=== PATIENT | female | born 1990 | race Caucasian/White ===

== ENCOUNTER 2021-01-21 14:38 | Outpatient (REF) | payer OTHER, SELFPAY | END 2021-01-21 14:39 | disposition home or self-care (01) | LOC: HO.LAB 14:38 | PROVIDERS: Visit Provider Internal Medicine | DX: Z20.822 Contact with and (suspected) exposure to COVID-19 (principal) | CPT/HCPCS: C9803; U0003; U0005 ==

== ENCOUNTER 2021-03-23 15:25 | Outpatient (REF) | payer OTHER, SELFPAY ==
[2021-03-23 15:56] LABS: COVID-19 Test Negative (Negative)
== END 2021-03-23 15:26 | disposition home or self-care (01) ==
LOC: HO.LAB 15:25
PROVIDERS: Visit Provider Internal Medicine
DX: Z20.822 Contact with and (suspected) exposure to COVID-19 (principal)
CPT/HCPCS: 36415; 87635; C9803

== ENCOUNTER 2021-07-22 13:06 | Outpatient (REF) | payer OTHER, MEDICAID, SELFPAY ==
[2021-07-22 15:06] LABS: D Dimer High Sensitivity < 150 NG/ML
[2021-07-22 15:21] LABS: Anion Gap 10 (12-20); Blood Urea Nitrogen 4 mg/dL (9-16); Calcium 9.4 mg/dL (8.4-10.2); Carbon Dioxide 24 mmol/L (22-29); Chloride 108 mmol/L (96-108); Estimated Glomerular Filt Rate > 60; Glucose Random 81 mg/dL (60-115); Potassium 4.1 mmol/L (3.3-5.1); Sodium 138 mmol/L (135-145)
[2021-07-23 21:02] LABS: EBV-VCA IgM Ab <36.00 U/mL
== END 2021-07-22 13:07 | disposition home or self-care (01) ==
LOC: HO.LAB 13:06
PROVIDERS: PCP Emergency Medicine; Visit Provider Emergency Medicine
DX: R39.9 Unspecified symptoms and signs involving the genitourinary system (principal)
CPT/HCPCS: 36415; 80048; 85379; 86664; 86665

== ENCOUNTER 2021-11-15 13:45 | Outpatient (REF) | payer OTHER, MEDICAID, SELFPAY ==
--- NOTE | ~2021-11-15 | MM_ITS ---
EXAMINATION: MM DIAGNOSTIC DIGITAL BREAST TOMOSYNTHESIS, BILATERAL US DIAGNOSTIC ULTRASOUND BREAST, RIGHT CLINICAL INFORMATION: 31-year-old with pain and fullness upper outer right breast for approximately one month, currently decreased. No prior imaging. The lifetime risk of breast cancer based on the Tyrer-Cuzick Model is 14%. COMPARISON: None (current study represents initial baseline exam). TECHNIQUE: Digital breast tomosynthesis is performed in both the craniocaudal and mediolateral oblique views along with computer-aided detection (CAD). Synthesized 2D images are generated from the tomosynthesis. Ultrasound right breast is targeted to the area of clinical concern upper outer quadrant. Patient is imaged both supine and upright. Grayscale imaging and color Doppler are performed without and with harmonics. Patient is able to point to the area of concern at time of imaging. FINDINGS: There are scattered areas of fibroglandular density (ACR BI-RADS breast composition Category b). Breast tissue composition borders on heterogeneously dense. There is no significant mass or architectural abnormality or abnormal calcifications. The axilla are unremarkable. The skin contours are smooth. There are bilateral nipple piercings as well as piercings near the inframammary folds. No skin thickening. No coarsening of the Elvis's ligaments. Ultrasound right breast demonstrates no cystic or solid mass. No focal architectural abnormality or duct ectasia. No skin thickening or edema tracking in soft tissue planes. Results are discussed with the patient at time of visit. There is no mammographic or ultrasound correlate for patient's palpable concern and mastodynia. MM/MM tomosynthesis diagnostic BI IMPRESSION: -No mammographic evidence of malignancy or inflammatory changes. -Normal ultrasound right breast. ASSESSMENT: BI-RADS 1: Negative RECOMMENDATION: 1. Patient should be managed based on the clinical impression. If clinically indicated, further evaluation may be considered with surgical consult. Decision to proceed with biopsy should be based on clinical grounds and degree of clinical concern. 2. Otherwise, routine annual screening mammography, beginning age 40, or earlier as clinical risk factors warrant. This patient's information was entered into a reminder system with a target due date for their next mammogram.
== END 2021-11-15 13:46 | disposition home or self-care (01) ==
LOC: HO.MAMMO 13:45
PROVIDERS: PCP Nurse Practitioner; Visit Provider Nurse Practitioner
DX: N63.11 Unspecified lump in the right breast, upper outer quadrant (principal)
CPT/HCPCS: 76642; 77062; 77066

== ENCOUNTER 2023-01-17 15:22 | Outpatient (REF) | payer OTHER, SELFPAY ==
--- NOTE | ~2023-01-17 | US_ITS ---
EXAMINATION: US PELVIS CLINICAL INFORMATION: Pelvic pain. COMPARISON: CT abdomen/pelvis 12/23/2016. TECHNIQUE: Ultrasound of the pelvis is performed using both transabdominal and transvaginal transducers along with Doppler. Transvaginal imaging is performed due to inadequate visualization transabdominally. FINDINGS: Uterus: The uterus is anteverted and measures 9.1 x 4.4 x 5.6 cm. The double wall endometrial thickness is 12 mm. The uterus is smooth in contour and has normal myometrial echogenicity. No visible fibroid. Nabothian cysts are present in the cervix. Adnexa: Both ovaries are visualized. There is normal color flow to the adnexa. There is no ovarian torsion. There is a small amount of free pelvic fluid. Right ovary measures 2.4 x 1.2 x 2.4 cm for a volume of 3.9 mL. Left ovary measures 4.7 x 2.7 x 3.4 cm for a volume of 23 mL which includes a 2.8 x 1.9 x 2.2 cm benign slightly complex ovarian cyst. US/US pelvic and transvaginal IMPRESSION: Negative exam aside from the presence of a benign-appearing left ovarian cyst with a small amount of free pelvic fluid.
== END 2023-01-17 15:23 | disposition home or self-care (01) ==
LOC: HO.US 15:22
PROVIDERS: PCP Family Medicine; Visit Provider Family Medicine
DX: R10.2 Pelvic and perineal pain (principal)
CPT/HCPCS: 76830; 76856

== ENCOUNTER 2023-04-26 18:15 | Outpatient (REF) | payer OTHER, SELFPAY ==
[2023-04-27 02:42] LABS: CT PCR NOT DETECTED (Not Detect.); NG PCR NOT DETECTED (Not Detect.)
[2023-04-27 13:49] LABS: BV Int Neg Control Negative (Negative); BV Int Pos Control Positive (Positive)
== END 2023-04-26 18:16 | disposition home or self-care (01) ==
LOC: HO.HHCLNP 18:15
PROVIDERS: Visit Provider Student in an Organized Health Care Education/Training Program
DX: N76.0 Acute vaginitis (principal)
CPT/HCPCS: 0353U; 87480; 87510; 87660

== ENCOUNTER 2023-05-12 11:31 | Outpatient (REF) | payer OTHER, SELFPAY | END 2023-05-12 11:32 | disposition home or self-care (01) | LOC: HO.XRAY 11:31 | PROVIDERS: PCP Family Medicine; Visit Provider Student in an Organized Health Care Education/Training Program | DX: Z13.89 Encounter for screening for other disorder (principal) ==

== ENCOUNTER 2023-08-17 17:17 | Outpatient (REF) | payer OTHER, SELFPAY | END 2023-08-17 17:18 | disposition home or self-care (01) | LOC: HO.HHCLNP 17:17 | PROVIDERS: Visit Provider Nurse Practitioner Family | DX: R05.9 Cough, unspecified (principal) | CPT/HCPCS: 87086; 87088; 87186 ==

== ENCOUNTER 2024-04-24 18:18 | Outpatient (REF) | payer OTHER, SELFPAY ==
[2024-04-25 03:50] LABS: CT PCR NOT DETECTED (Not Detect.); NG PCR NOT DETECTED (Not Detect.)
[2024-04-25 11:34] LABS: Bacterial Vaginosis PCR POSITIVE (Negative); Candida Group PCR NOT DETECTED (Not Detect); Candida glab krusei PCR NOT DETECTED (Not Detect); Trichomonas vaginalis PCR NOT DETECTED (Not Detect)
== END 2024-04-24 18:19 | disposition home or self-care (01) ==
LOC: HO.LNP 18:18
PROVIDERS: Visit Provider Emergency Medicine
DX: R39.9 Unspecified symptoms and signs involving the genitourinary system (principal)
CPT/HCPCS: 0352U; 87086; 87491; 87591

== ENCOUNTER 2024-04-25 13:34 | Outpatient (REF) | payer OTHER, SELFPAY ==
--- NOTE | ~2024-04-25 | XR_ITS ---
EXAMINATION: XR CHEST CLINICAL INFORMATION: 4-5 day h/o right anterior chest pain after hearing a pop . Patient has permanent piercings in the chest. COMPARISON: None available TECHNIQUE: 2 views, 3 images of the chest were obtained. FINDINGS: The lungs are well expanded. There is no focal consolidation, edema, or effusion. No pneumothorax. The cardiomediastinal silhouette is within normal limits. No acute osseous abnormality. Bilateral nipple piercings and left chest wall piercing. XR/XR chest 2V IMPRESSION: Clear lungs. No acute osseous abnormality. Electronically signed by: Keith Castillo MD 06/19/2024 08:14 AM [facility]
== END 2024-04-25 13:35 | disposition home or self-care (01) ==
LOC: HO.XRAY 13:34
PROVIDERS: PCP Family Medicine; Visit Provider Emergency Medicine
DX: R07.9 Chest pain, unspecified (principal)
CPT/HCPCS: 71046

== ENCOUNTER 2025-01-02 17:37 | Outpatient (REF) | payer SELFPAY ==
--- OUTSIDE RECORDS SUMMARY | 2025-01-02 19:57 | XMS_ITS | Encounter Summary ---
Author Organization [employer] Address [address] [facility] [address] 7[address] [place] [address] Care Team Providers Care Healthcare Business Analyst Name Role Phone Kailyn Gill MD Primary Care Provider [phone] Encounter Details Date Type Department Care Team ([facility] st Contact Info) Description 05/03/2023 Orders Only [facility] MED & PEDS [address] [place], [place] [phone] Rhiannon Hinson MD [address] [place] [address] Social History Tobacco Use Types Packs/Day Years Used Date Smoking Tobacco: Never Passive Smoke Exposure: Never Smokeless Tobacco: Never Depression Answer Date Recorded Patient Health Questionnaire-9 Score 8 07/18/2022 Housing Stability Answer Date Recorded What is your housing situation today? I do not have housing (Staying with others, in a hotel, in a fci, living outside on the street, on a beach, in a car, or in a park 04/16/[address] you li ve. Do you have problems with any of the following? None of the above 04/16/2023 Food Insecurity Answer Date Recorded Within the past 12 months, y ou worried that your food would run out before you got money to buy more: Sometimes True 2022 Within the past 12 months,th e food you bought just didn't last and you didn't have enough money to get more: Sometimes True 04/26/2023 Transportation Answer Date Recorded In the past 12 months, has l ack of transportation kept you from medical appts, meetings, work or from getting things needed for daily living? No 04/26/2023 Utilities Answer Date Recorded In the past 12 months, has t he electric, gas, oil or water company threatened to shut off services in your home? No 04/26/2023 Depression Answer Date Recorded Patient Health Questionnaire-2 Score 4 07/18/2022 Comments Unknown Sex and Gender Information Value Date Recorded Sex Assigned at Female 05/09/2022 10:18 AM EDT Legal Sex Female 10:18 AM EDT Gender Identity Female 05/09/2022 10:18 AM EDT Sexual Orientation Straight 05/09/2022 10 :18 AM EDT documented as of this encounter Plan of Treatment Not on file documented as of this encounter Visit Diagnoses Not on filedocumented in this encounter Additional Health Concerns Assessment Noted Time PHQ-9 Depression Total Score: 8 07/18/19 23 2:26 PM EST documented as of this encounter Care Teams Healthcare Business Analyst Relationship Specialty Start Date End Date Kailyn Gill MD [address] [place] [phone] PCP - General Family Medicine 03/03/22 documented as of this encounter
[2025-01-02 20:26] LABS: Bacterial Vaginosis PCR POSITIVE (Negative); Candida Group PCR NOT DETECTED (Not Detect); Candida glab krusei PCR NOT DETECTED (Not Detect); Trichomonas vaginalis PCR NOT DETECTED (Not Detect)
[2025-01-02 21:00] LABS: CT PCR NOT DETECTED (Not Detect.); NG PCR NOT DETECTED (Not Detect.)
== END 2025-01-02 17:38 | disposition home or self-care (01) ==
LOC: HO.HHCLNP 17:37
PROVIDERS: Visit Provider Nurse Practitioner Family
DX: R39.9 Unspecified symptoms and signs involving the genitourinary system (principal)
CPT/HCPCS: 81515; 87491; 87591

== ENCOUNTER → 2025-06-19 13:21 | Outpatient (REF) | payer OTHER, SELFPAY ==
--- OUTSIDE RECORDS SUMMARY | 2025-06-19 20:32 | XMS_ITS | Encounter Summary ---
Author Organization [employer] Address [address] [facility] [address] [place] [address] Care Team Providers Care Dehydrogenation Supervisor Name Role Phone Kailyn Gill MD Primary Care Provider [phone] Encounter Details Date Type Department Care Team ([facility] st Contact Info) Description 05/03/2023 Orders Only [facility] MED & PEDS [address] [place], [place] [phone] Rhiannon Hinson MD [address] [place] [address] Social History Tobacco Use Types Packs/Day Years Used Date Smoking Tobacco: Never Passive Smoke Exposure: Never Smokeless Tobacco: Never Depression Answer Date Recorded Patient Health Questionnaire-9 Score 8 07/18/2022 Housing Stability Answer Date Recorded What is your housing situation today? I do not have housing (Staying with others, in a hotel, in a usp, living outside on the street, on a [...] as of this encounter Plan of Treatment Upcoming Encounters Date Type Department Care Team (Late st Contact Info) Description 07/02/2025 9:30 AM EST Office Visit [facility] [address] [place] [phone] Kailyn Gill MD [address] [place] [address] documented as of this encounter Visit Diagnoses Not on filedocumented in this encounter Additional Health Concerns Assessment Noted Time PHQ-9 Depression Total Score: 8 07/18/19 23 2:26 PM EST documented as of this encounter Care Teams Dehydrogenation Supervisor Relationship Specialty Start Date End Date Kailyn Gill MD [address] [place] [address] PCP - General Family Medicine 03/03/22 documented as of this encounter
--- OUTSIDE RECORDS SUMMARY | 2025-06-19 20:32 | XMS_ITS | Encounter Summary ---
Author Organization [employer] Address [address] [facility] 7t [place] [address] Care Team Providers Care Assistant Pressman Name Role Phone Kailyn Gill MD Primary Care Provider Encounter Details Date Type Department Care Team ([facility] st Contact Info) Description 09/05/2023 Orders Only [facility] [address] [place], [place] [phone] Kailyn Gill MD [address] [place], [place] [phone] Anxiety Social History Tobacco Use Types Packs/Day Years Used Date Smoking Tobacco: Never Passive Smoke Exposure: Never Smokeless Tobacco: Never Depression Answer Date Recorded Patient Health Questionnaire-9 Score 8 07/18/2022 Housing Stability Answer Date Recorded What is your housing situation today? I do not have housing (Staying with others, in a hotel, in a group home, living outside on the street, on a [...] Description 07/02/2025 9:30 AM EST Office Visit [facility] [address] [place] [phone] Kailyn Gill MD [address] [place] [phone] documented as of this encounter Visit Diagnoses Diagnosis Anxiety Anxiety state, unspecified documented in this encounter Additional Health Concerns Assessment Noted Time PHQ-9 Depression Total Score: 8 07/18/19 23 2:26 PM EST documented as of this encounter Care Teams Assistant Pressman Relationship Specialty Start Date End Date Kailyn Gill MD [address] [place] [phone] PCP - General Family Medicine 03/03/22 documented as of this encounter
--- OUTSIDE RECORDS SUMMARY | 2025-06-19 20:32 | XMS_ITS | Encounter Summary ---
Author Organization [employer] Address [address] [facility] 7t [place] [address] Care Team Providers Care Field Inspector Name Role Phone Kailyn Gill MD Primary Care Provider [phone] Encounter Details Date Type Department Care Team ([facility] st Contact Info) Description 01/03/2025 Orders Only [facility] [address] [place], [place] [phone] Briana Main NP [address] [place], [place] [phone] Social History Tobacco Use Types Packs/Day Years Used Date Smoking Tobacco: Never Passive Smoke Exposure: Never Smokeless Tobacco: Never Depression Answer Date Recorded Patient Health Questionnaire-9 Score 4 05/16/2024 Patient Health Questionnaire-9 Score 4 05/16/2024 Last PHQ-9: Questionnaire Data Not on file 1 07/16/2023 Housing Stability Answer Date Recorded What is your housing situation today? I do not have housing (Staying with others, in a hotel, in a longterm, living outside on the street, on a [...] Answer Date Recorded Patient Health Questionnaire-2 Score 1 05/16/2024 Comments Unknown Sex and Gender Information Value [...] Description 07/02/2025 9:30 AM EST Office Visit [facility] [address] [place] [address] Kailyn Gill MD [address] [place] [phone] documented as of this encounter Visit Diagnoses Not on filedocumented in this encounter Additional Health Concerns Assessment Noted Time PHQ-9 Depression Total Score: 4 05/16/20 24 11:45 AM EST documented as of this encounter Care Teams Field Inspector Relationship Specialty Start Date End Date Kailyn Gill MD [address] [place] [phone] PCP - General Family Medicine 03/03/22 documented as of this encounter
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
--- OUTSIDE RECORDS SUMMARY | 2025-06-19 20:33 | XMS_ITS | Encounter Summary ---
Author Organization [employer] Address [address] [facility] 7t [place] [address] Care Team Providers Care Processor Grain Name Role Phone Kailyn Gill MD Primary Care Provider [phone] Encounter Details Date Type Department Care Team ([facility] st Contact Info) Description 01/03/2025 Orders Only [facility]INE [address] [place], [place] [phone] Kenyatta Colón MD [address] [place] [address] Social History Tobacco Use Types Packs/Day Years [...] with others, in a hotel, in a mcfp, living outside on the street, on a [...] Description 07/02/2025 9:30 AM EST Office Visit [facility] [address] [place] [phone] Kailyn Gill MD [address] [place] [phone] documented as of this encounter Visit Diagnoses Not on filedocumented in this encounter Additional Health Concerns Assessment Noted Time PHQ-9 Depression Total Score: 4 05/16/20 24 11:45 AM EST documented as of this encounter Care Teams Processor Grain Relationship Specialty Start Date End Date Kailyn Gill MD [address] [place] [phone] PCP - General Family Medicine 03/03/22 documented as of this encounter
--- OUTSIDE RECORDS SUMMARY | 2025-06-19 20:33 | XMS_ITS | Encounter Summary ---
Author Organization [employer] Address [address] [facility] 7t [place] [address] Care Team Providers Care Welding Machine Operator [employer] Metal [employer] Name Role Phone Kailyn Gill MD Primary Care Provider [phone] Encounter Details Date Type Department Care Team ([facility] st Contact Info) Description 01/03/2025 Orders Only [facility] MED[facility]INE [address] [place], [place] [phone] Briana Main NP 230 [place], [place] [phone] Social History Tobacco Use Types Packs/Day Years [...] with others, in a hotel, in a care home, living outside on the street, on [...] Description 07/02/2025 9:30 AM EST Office Visit [facility] [address] [place] [phone] Kailyn Gill MD [address] [place] [phone] documented as of this encounter Visit Diagnoses Not on filedocumented in this encounter Additional Health Concerns Assessment Noted Time PHQ-9 Depression Total Score: 4 05/16/20 24 11:45 AM EST documented as of this encounter Care Teams Welding Machine Operator [employer] Relationship Specialty Start Date End Date Kailyn Gill MD [address] [place] [phone] PCP - General Family Medicine 03/03/22 documented as of this encounter
--- OUTSIDE RECORDS SUMMARY | 2025-06-19 20:33 | XMS_ITS | Encounter Summary ---
Author Organization [employer] Address [address] [place] [address] 7 [place] [address] Care Team Providers Care Doffer Name Role Phone Kailyn Gill MD Primary Care Provider [phone] Encounter Details Date Type Department Care Team (Late Contact Info) Description 10/07/2022 Orders Only [facility] MEDICINE [address] [place] [address] [phone] Kailyn Gill MD [address] [place] [address] [phone] Social History Tobacco Use Types Packs/Day Years Used Date Smoking Tobacco: Never Passive Smoke Exposure: Never Smokeless Tobacco: Never Depression Answer Date Recorded Patient Health Questionnaire-9 Score 8 07/18/2022 Depression Answer Date Recorded Patient Health Questionnaire-2 Score 4 07/18/2022 Comments Unknown Sex and Gender Information Value Date Recorded Sex Assigned at Female 05/09/2022 10:18 AM EDT Legal Sex Female 10:18 AM EDT Gender Identity Female 05/09/2022 10:18 AM EDT Sexual Orientation Straight 05/09/2022 10 :18 AM EDT COVID-19 Exposure Response Date Recorded In the last 10 days, have yo keshav been in contact with someone who was confirmed or suspected to have Coronavirus/COVID-19? No / Unsure 10/05/2022 2:27 PM EDT documented as of this encounter Plan of Treatment Upcoming Encounters Date Type Department Care Team (Late Contact Info) Description 07/02/2025 9:30 AM EST Office Visit [facility] [address] [place] [address] [phone] Kailyn Gill MD [address] [place], [place] [phone] documented as of this encounter Visit Diagnoses Not on filedocumented in this encounter Additional Health Concerns Assessment Noted Time PHQ-9 Depression Total Score: 8 07/18/19 23 2:26 PM EST documented as of this encounter Care Teams Doffer Relationship Specialty Start Date End Date Kailyn Gill MD [address] [place] [address] PCP - General Family Medicine 03/03/22 documented as of this encounter
--- OUTSIDE RECORDS SUMMARY | 2025-06-19 20:33 | XMS_ITS | Encounter Summary ---
Author Organization [employer] Address [address] [place] [address] 7 [place] [address] Care Team Providers Care Owner Manager Name Role Phone Kailyn Gill MD Primary Care Provider [phone] Encounter Details Date Type Department Care Team (Late Contact Info) Description 12/29/2022 Orders Only [facility] MED[facility]INE [address] [place] [address] [phone] Kailyn Gill MD [address] [place] [address] [phone] Social History Tobacco Use Types Packs/Day Years [...] suspected to have Coronavirus/COVID-19? No / Unsure 12/22/2022 11:03 AM EDT documented as of this encounter Plan of Treatment Upcoming Encounters Date Type Department Care Team (Late Contact Info) Description 07/02/2025 9:30 AM EST Office Visit [facility] [address] [place] [address] [phone] Kailyn Gill MD [address] [place], [place] [phone] documented as of this encounter Visit Diagnoses Not on filedocumented in this encounter Additional Health Concerns Assessment Noted Time PHQ-9 Depression Total Score: 8 07/18/19 23 2:26 PM EST documented as of this encounter Care Teams Owner Manager Relationship Specialty Start Date End Date Kailyn Gill MD [address] [place] [address] PCP - General Family Medicine 03/03/22 documented as of this encounter
--- OUTSIDE RECORDS SUMMARY | 2025-06-19 20:34 | XMS_ITS | Encounter Summary ---
Author Organization [employer] Address [address] [facility] 7t [place] [address] Care Team Providers Care Principal Architectural Firm Name Role Phone Kailyn Gill MD Primary Care Provider [phone] Encounter Details Date Type Department Care Team ([facility] st Contact Info) Description 05/16/2024 Orders Only [facility] MEDICINE 230 [place], [place] [phone] Kailyn Gill MD [address] [place], [place] [phone] Anxiety Social History Tobacco Use Types Packs/Day [...] with others, in a hotel, in a fdc, living outside on the street, on a [...] AM EDT documented as of this encounter Functional Status * Over the past 2 weeks, how often have you been bothered by any of the following problems? Question Answer Date of Assessment Author Patient Health Questionnaire-2 Score 1 05/16/2024 11:45 AM Josué Montes DeO ca LMHC * How difficult have these problems made it for you to do your work, take care of things at home, or get along with other people? Answer Date of Assessment Author Very difficult 05/16/2024 11:45 AM Josué Mao LMHC * Over the last 2 weeks, how often have you been bothered by any of the following problems? Question Answer Date of Assessment Author Feeling nervous, anxious, or on edge 3 05/16/2024 11:44 AM Josué Ryan LMHC Not being able to stop or control worrying 3 05/16/2024 11:44 AM Josué Ryan LMHC Worrying too much about different things 3 05/16/2024 11:44 AM Josué Ryan LMHC Trouble relaxing 3 05/16/2024 11:44 AM Josué Dillon LMHC Being so restless that it is hard to sit still 3 05/16/2024 11:44 AM Josué Ryan LMHC Becoming easily annoyed or irritable 1 05/16/2024 11:44 AM Josué Ryan LMHC Feeling afraid as if something awful might happen 2 05/16/2024 11:44 AM Josué Azul LMHC KAREN-7 Total Score 18 05/16/2024 11:44 AM Josué Dillon LM[facility] * Over the past 2 weeks, how often have you been bothered by any of the following problems? Question Answer Date of Assessment Author Little interest or pleasure in doing things Not at all 05/16/2024 11:45 AM Josué Ryan LMHC Feeling down, depressed, or hopeless Several days 05/16/2024 11:45 AM Josué Ryan LMHC Trouble falling or staying asleep, or sleeping too much Several days 05/16/2024 11:45 AM Josué White LMHC Feeling tired or having little energy Several days 05/16/2024 11:45 AM Josué Ryan LMHC Poor appetite or overeating Not at all 05/16/2024 11 :45 AM Josué Mao LMHC Feeling bad about yourself - or that you are a failure or have let yourself or your family down Not at all 05/16/2024 11:45 AM Josué Ryan LMHC Trouble concentrating on things, such as reading the newspaper or watching television Several days 05/16/2024 11:45 AM Josué Ryan LMHC Moving or speaking so slowly that other people could have noticed? Or the opposite - being so fidgety or restless that you have been moving around a lot more than usual. Not at all 05/16/2024 11:45 AM Josué Ryan LMHC Thoughts that you would be better off or hurting yourself in some way Not at all 05/16/2024 11:45 AM Josué Moreira LMHC Patient Health Questionnaire-9 Score 4 05/16/2024 11:45 AM Josué Montes De Oca LMHC documented as of this encounter Plan of Treatment Upcoming Encounters Date Type Department Care Team ([facility] st Contact Info) Description 07/02/2025 9:30 AM ODESSA Office Visit [facility] MED[facility]INE [address] [place] [address] Kailyn Gill MD [address] [place] [address] documented as of this encounter Visit Diagnoses Diagnosis Anxiety Anxiety state, unspecified documented in this encounter Additional Health Concerns Assessment Noted Time PHQ-9 Depression Total Score: 4 05/16/20 24 11:45 AM EST documented as of this encounter Care Teams Principal Architectural Firm Relationship Specialty Start Date End Date Kailyn Gill MD [address] [place] [phone] PCP - General Family Medicine 03/03/22 documented as of this encounter
== END ==
LOC: HO.CARD 13:21
PROVIDERS: PCP Family Medicine; Visit Provider Nurse Practitioner Primary Care
DX: R00.2 Palpitations (principal)
CPT/HCPCS: 93225

== ENCOUNTER 2025-07-02 15:10 | Outpatient (REF) | payer OTHER, SELFPAY ==
--- OUTSIDE RECORDS SUMMARY | 2025-07-02 09:30 | XMS_ITS | Encounter Summary ---
Author Organization [employer] Address [address] [facility] [address] 7t [place] [address] Care Team Providers Care Healthcare Associate Name Role Phone Kailyn Gill MD Primary Care Provider [phone] Encounter Details Date Type Department Care Team ([facility] st Contact Info) Description 07/02/2025 9:30 AM EST Office Visit [facility] MED[facility]INE 230 [place], [place] [phone] Kailyn Gill MD 230 [place], [place] [phone] Recurrent urinary tract infection (Primary Dx); UTI symptoms Social History Tobacco Use Types Packs/Day Years Used Date Smoking Tobacco: Never Passive Smoke Exposure: Never Smokeless Tobacco: Never Depression Answer Date Recorded Patient Health Questionnaire-9 Score 20 06/11/2025 Patient Health Questionnaire-9 Score 20 06/11/2025 Last PHQ-9: Questionnaire Data Not on file 1 08/12/2024 Housing Stability Answer Date Recorded What is your housing situation today? I am not s ure 07/02/[address] you li ve. Do you have problems with any of the following? Not on file 07/02/2025 Food Insecurity Answer Date Recorded Within the past 12 months, y ou worried that your food would run out before you got money to buy more: Sometimes True 2024 Within the past 12 months,th e food you bought just didn't last and you didn't have enough money to get more: Sometimes True 07/02/2025 Transportation Answer Date Recorded In the past 12 months, has l ack of transportation kept you from medical appts, meetings, work or from getting things needed for daily living? Yes, it has kept me from medical appointments or getting medications. 07/02/2025 Utilities Answer Date Recorded In the past 12 months, has t he electric, gas, oil or water company threatened to shut off services in your home? Yes 07/02/2025 Depression Answer Date Recorded Patient Health Questionnaire-2 Score 5 06/11/2025 Internet Access Answer Date Recorded Internet Access Q1 No 07/02/2025 Internet Access Q2 I cannot afford it 07/02/2025 Comments Unknown Sex and Gender Information Value Date Recorded Sex Assigned at Female 05/09/2022 10:18 AM EDT Legal Sex Female 10:18 AM EDT Gender Identity Female 05/09/2022 10:18 AM EDT Sexual Orientation Straight 05/09/2022 10 :18 AM EDT documented as of this encounter Last Filed Vital Signs Vital Sign Reading Time Taken Comments Blood Pressure 120/80 07/02/2025 10:38 AM EST Pulse 83 07/02/2025 10:38 AM EST Temperature 36 C (96.8 F) 07/02/2025 10:38 AM EST Respiratory Rate 15 07/02/2025 10:38 AM EST Oxygen Saturation 98% 07/02/2025 10:38 AM EST Inhaled Oxygen Concentration - - Weight - - Height 157.5 cm (5' 2 ) 07/02/2025 10:38 AM EST Body Mass Index - - documented in this encounter Functional Status * Over the last 2 weeks, how often have you been bothered by any of the following problems? Question Answer Date of Assessment Author Feeling nervous, anxious, or on edge 3 07/02/2025 11:10 AM Tiago Upton [place] Not being able to stop or control worrying 2 07/02/2025 11:10 AM Tiago Upton [place] Worrying too much about different things 3 07/02/2025 11:10 AM Tiago Upton [place] Trouble relaxing 2 07/02/2025 11:10 AM Cheryl Upton [place] Being so restless that it is hard to sit still 2 07/02/2025 11:10 AM Tiago Upton [place] Becoming easily annoyed or irritable 1 07/02/2025 11:10 AM EST Tiago Jimenes [place] Feeling afraid as if somethi ng awful might happen 2 07/02/2025 11:10 AM EST Tiago Jimenes [place] KAREN-7 Total Score 15 07/02/2025 11:10 AM EST Cheryl Jimenes [place] documented as of this encounter Miscellaneous Notes * Assessment & Plan Note - Kailyn Gill MD - 07/02/2025 5:54 AM ESTAssociated Problem(s): Recurrent urinary tract infection - asymptomatic at this time - postcoital UTI - UTI in Jul 2021 E. Coli resistant to penicillin, beta-lactam, cephalosporin, quinolone, and SMX/TMP, treated with nitrofurantoin - UTI in May 2021 E coli resistant to amp/beta-lactam, cephalosporin, quinolone - UTI in September 2020 E. Coli, treated with nitrofurantoin - consider urology referral or prophylactic antibiotic after sex if increase in frequency documented in this encounter Plan of Treatment Scheduled Orders Name Type Priority Associated Diagnoses Orde r Schedule Culture, Urine, Routine Microbiology Routine Recurrent urinary tract infection UTI symptoms Expected: 07/02/2025 (Approximate), Expires: 07/02/2026 documented as of this encounter Procedures Procedure Name Priority Date/Time Associated Diagnosis Comments POCT URINALYSIS DIPSTICK Routine 07/02/2025 11:18 AM EST UTI symptoms documented in this encounter Results * (ABNORMAL) POCT urinalysis dipstick manually resulted (CPT 65641) (07/02/2025 11:18 AM EST) Color, UA Yellow Clarity, UA Clear Glucose, UA Negative Bilirubin, UA Negative Ketones, UA Negative Spec Grav, UA 1.025 Blood, UA Positive(A) Negative, None Detected Comment:trace pH, UA 6.0 Protein, UA Negative Urobilinogen, UA 0.2 Leukocytes, UA Trace (15) Negative, Rare, Trace, 1+ (17), 2+ (35), 3+ (70), Trace (15) Nitrite, UA Negative Negative, None Detected Appearance, UA clear QC Media Lot # [id number] Lot# Expiration Date ,546,[id number] Urine (Urine, Random) 07/02/2025 11:18 AM EST Kailyn Gill MD POINT OF CARE TEST ENTER/EDIT OR DERABLES Final Result documented in this encounter Visit Diagnoses Diagnosis Recurrent urinary tract infection- Primary Urinary tract infection, site not specified UTI symptoms documented in this encounter Additional Health Concerns Assessment Noted Time PHQ-9 Depression Total Score: 20 025 3:52 PM EST documented as of this encounter Care Teams Healthcare Associate Relationship Specialty Start Date End Date Kailyn Gill MD [address] [place] [phone] PCP - General Family Medicine 03/03/22 documented as of this encounter
--- OUTSIDE RECORDS SUMMARY | 2025-07-02 15:12 | XMS_ITS | Clinical Summary ---
Author Organization [employer] Address [address] [facility] 7t [place] [address] Care Team Providers Care Client Services Account Manager Name Role Phone Ya Gill MD Primary Care Provider [phone] Allergies No known active allergies Medications * This document contains information received from the source organization and may not represent a complete record from that organization. lidocaine-prilo edmund (Emla) 2.5-2.5 % cream Apply topically every 12 (twelve) hours if needed for mild pain. 5 g 3 Active hydrOXYzine HCl (Atarax) 50 MG tabletIndicatio ns:Anxiety Take 1 tablet (50 mg) by mouth if needed at bedtime for anxiety. 90 tablet 1 06/02/2025 5:20 PM EST 5 Active escitalopram (Lexapro) 5 MG tablet Take 1 tablet by mouth once daily. Increase to 2 tablets by mouth once daily after 1 week. 60 tablet 2 5 Active naproxen (Naprosyn) 500 MG tablet Take 1 tablet by mouth with food twice daily as needed for pain / foot swelling 40 tablet 5 Active Active Problems Problem Noted Date Diagnosed Date [...] urinary tract infection 07/23/2021 Assessment & Plan (07/02/2025 5:54 AM EST): - asymptomatic at this time - postcoital [...] if increase in frequency Assessment & Plan (12/22/2022 12:19 PM EDT): [...] Diagnosed Date Resolved Date Dietary counseling 12/22/2022 3 Vaginosis 06/21/2022 07/22/2022 Assessment & Plan (06/21/2022 3:15 PM EST): Symptomatology and exam indicative of this, likely BV Plan: Empiric treatment for BV, lab sent , STI sent F/u if worsening or no improvement Encounters * This document contains information received from the source organization and may not represent a complete record from that organization. Date Type Department Care Team Description 07/02/2025 9:30 AM EST Office Visit [address] [phone] Ya Gill MD Recurrent urinary tract infection (Primary Dx); UTI symptoms 07/02/2025 Patient Outreach [address] [phone] Ya Gill MD Care Coordination ([facility] outreach for [facility] housing search-referral completed ) 07/02/[address] [phone] Ya Gill MD 07/02/2025 Travel 07/01/[address] [address] Ya Gill MD chart prep 06/11/2025 Travel 06/02/2025 3:15 PM EST Office Visit [address] [address] Karol Ryena ANP Anxiety (Primary Dx); Irregular menses; Palpitations 06/02/[address] [address] Ya Gill MD Insurance 06/02/2025 Travel 05/30/[address] [address] Ya Gill MD Nurse Triage from Last [...] EST Height 157.5 cm (5' 2 ) 07/02/2025 10:38 AM EST Body Mass Index 26.52 06/02/2025 3:40 PM EST Plan of Treatment Health Maintenance Due Date Last Done Comments HIV Screening 1991 IPV Vaccines (4 of 4 - 4-dose series) 1995 01/02/1992, 1991, 1991, Additional history exists Family Planning (PISQ) 2006 Hepatitis C Screening 2009 Pap Smear 2012 Cervical Cancer Screening 2021 HPV/Cotest 2021 SDOH Screening 07/18/2023 07/18/2022 COVID-19 Vaccine ( season) 2025 04/15/2021, 11/11/2020 Depression Monitoring 12/10/2025 06/11/2025, 025 Alcohol/Substance Use Screening 07/02/2026 07/02/2025 Disability Screening 07/02/2026 07/02/2025 Tobacco Screening 07/02/2026 07/02/2025 DTaP/Tdap/Td Vaccines (7 - Td or Tdap) 12/04/2031 12/03/2021, 03/03/2006, 04/17/1993, Additional history exists Zoster Vaccines (1 of 2) 2041 RSV Patients and Patients Aged 60 years or older (1 - 1-dose 75+ series) 2066 Meningococcal Vaccine Completed 02/13/2009 HPV Vaccines Completed 03/10/2017, 03/2016, 01/21/2011, Additional history exists Hepatitis B Vaccines [...] on patient's age to complete this topic Procedures Procedure Name Priority Date/Time Associated Diagnosis Comments POCT URINALYSIS DIPSTICK Routine 07/02/2025 11:18 AM EST UTI symptoms from Last 3 Months Results * (ABNORMAL) POCT urinalysis dipstick manually resulted (CPT 82202) (07/02/2025 11:18 AM EST) Color, UA Yellow [...] Media Lot # [id number] Lot# Expiration Date [id number] Urine (Urine, Random) 07/02/2025 11:18 AM EST Ya Gill MD POINT OF CARE TEST ENTER/EDIT OR DERABLES Final Result from Last 3 Months Insurance GENERIC COMMERCIAL * Guarantor: Petra Noel Account Type Relation to Patient Date of Phone Billing Address Personal/Family Self [address] [address] Care Teams Client Services Account Manager Relationship Specialty Start Date End Date Ya Gill MD [address] [place] [phone] PCP - General Family Medicine 03/03/22
--- OUTSIDE RECORDS SUMMARY | 2025-07-02 15:12 | XMS_ITS | Encounter Summary ---
Author Organization [employer] Address [address] [facility] [address] 7t [place] [address] Care Team Providers Care Risk Advisor Name Role Phone Kailyn Gill MD Primary Care Provider [phone] Encounter Details Date Type Department Care Team ([facility] st Contact Info) Description 05/03/2023 Orders Only [facility] PEDS [address] [place], [place] [phone] Rhiannon Hinson MD [address] [place] [address] Social History Tobacco Use Types Packs/Day Years Used Date Smoking Tobacco: Never Passive Smoke Exposure: Never Smokeless Tobacco: Never Depression Answer Date Recorded Patient Health Questionnaire-9 Score 8 07/18/2022 Housing Stability Answer Date Recorded What is your housing situation today? I do not have housing (Staying with others, in a hotel, in a half-way, living outside on the street, on a [...] documented as of this encounter Care Teams Risk Advisor Relationship Specialty Start Date End Date Kailyn iGll MD [address] [place] [phone] PCP - General Family Medicine 03/03/22 documented as of this encounter
--- OUTSIDE RECORDS SUMMARY | 2025-07-02 15:12 | XMS_ITS | Encounter Summary ---
Author Organization [employer] Address [address] [facility] 7t [place] [address] Care Team Providers Care Director Of Diagnostic Imaging Name Role Phone Kailyn Gill MD Primary Care Provider [phone] Encounter Details Date Type Department Care Team ([facility] st Contact Info) Description 09/05/2023 Orders Only [facility] MEDICINE 230 [place], [place] [phone] Kailyn Gill MD 230 [place], [place] [phone] Anxiety Social History Tobacco Use Types Packs/Day Years Used Date Smoking Tobacco: Never Passive Smoke Exposure: Never Smokeless Tobacco: Never Depression Answer Date Recorded Patient Health Questionnaire-9 Score 8 07/18/2022 Housing Stability Answer Date Recorded What is your housing situation today? I do not have housing (Staying with others, in a hotel, in a residential, living outside on the street, on a [...] documented as of this encounter Care Teams Director Of Diagnostic Imaging Relationship Specialty Start Date End Date Kailyn Gill MD [address] [place] [phone] PCP - General Family Medicine 03/03/22 documented as of this encounter
--- OUTSIDE RECORDS SUMMARY | 2025-07-02 15:12 | XMS_ITS | Encounter Summary ---
Author Organization [employer] Address [address] [facility] 7t [place] [address] Care Team Providers Care Transportation Aide Name Role Phone Kailyn Gill MD Primary Care Provider [phone] Encounter Details Date Type Department Care Team ([facility] st Contact Info) Description 01/03/[address] [facility] MEDICINE 230 [place], [place] [phone] Briana Main NP 230 [place], [place] [phone] Social History Tobacco Use Types Packs/Day Years [...] documented as of this encounter Care Teams Transportation Aide Relationship Specialty Start Date End Date Kailyn Gill MD [address] [place] [phone] PCP - General Family Medicine 03/03/22 documented as of this encounter
--- OUTSIDE RECORDS SUMMARY | 2025-07-02 15:12 | XMS_ITS | Encounter Summary ---
Author Organization [employer] Address [address] [facility] 7t [place] [address] Care Team Providers Care Dump Attendant Name Role Phone Kailyn Gill MD Primary Care Provider [phone] Encounter Details Date Type Department Care Team ([facility] st Contact Info) Description 01/03/2025 Orders Only [facility] MEDICINE 230 [place], [place] [phone] Briana Main NP 230 [place], [place] [phone] Social History Tobacco Use Types Packs/Day Years [...] with others, in a hotel, in a long term, living outside on the street, on a [...] documented as of this encounter Care Teams Dump Attendant Relationship Specialty Start Date End Date Kailyn Gill MD [address] [place] [phone] PCP - General Family Medicine 03/03/22 documented as of this encounter
--- OUTSIDE RECORDS SUMMARY | 2025-07-02 15:12 | XMS_ITS | Encounter Summary ---
Author Organization [employer] Address [address] [facility] 7t [place] [address] Care Team Providers Care Account Manager Relief Name Role Phone Kailyn Gill MD Primary Care Provider [phone] Encounter Details Date Type Department Care Team ([facility] st Contact Info) Description 01/03/2025 Orders Only [facility] MEDICINE 230 [place], [place] [phone] Kenyatta Colón MD 230 [place] [address] Social History Tobacco Use Types Packs/Day Years [...] documented as of this encounter Care Teams Account Manager Relief Relationship Specialty Start Date End Date Kailyn Gill MD 230 [place] [address] PCP - General Family Medicine 03/03/22 documented as of this encounter
--- OUTSIDE RECORDS SUMMARY | 2025-07-02 15:13 | XMS_ITS | Encounter Summary ---
Author Organization [employer] Address [address] [facility] 7t [place] [address] Care Team Providers Care Mica Plate Layer Hand Name Role Phone Kailyn Gill MD Primary Care Provider [phone] Encounter Details Date Type Department Care Team ([facility] st Contact Info) Description 05/16/2024 Orders Only [facility] MEDICINE 230 [place], [place] [phone] Kailyn Gill MD 230 [place], [place] [phone] Anxiety Social History Tobacco Use Types Packs/Day [...] with others, in a hotel, in a nursing home, living outside on the street, on [...] documented as of this encounter Care Teams Mica Plate Layer Hand Relationship Specialty Start Date End Date Kailyn Gill MD 230 [place] [address] PCP - General Family Medicine 03/03/22 documented as of this encounter
--- OUTSIDE RECORDS SUMMARY | 2025-07-02 15:13 | XMS_ITS | Encounter Summary ---
Author Organization [employer] Address [address] [facility] 7t [place] [address] Care Team Providers Care Senior C Developer Name Role Phone Kailyn Gill MD Primary Care Provider [phone] Encounter Details Date Type Department Care Team ([facility] st Contact Info) Description 12/29/2022 Orders Only [facility] MEDICINE 230 [place], [place] [phone] Kailyn Gill MD 230 [place], [place] [phone] Social History Tobacco Use Types Packs/Day Years [...] Recorded In the last 10 days, have neelam parr been in contact with someone who was [...] documented as of this encounter Care Teams Senior C Developer Relationship Specialty Start Date End Date Kailyn Gill MD 230 [place] [address] PCP - General Family Medicine 03/03/22 documented as of this encounter
--- OUTSIDE RECORDS SUMMARY | 2025-07-02 15:13 | XMS_ITS | Encounter Summary ---
Author Organization [employer] Address [address] [facility] [address] 7t [place] [address] Care Team Providers Care Forester Silviculture Name Role Phone Kailyn Gill MD Primary Care Provider [phone] Encounter Details Date Type Department Care Team (Latest Contact Info) Description 07/02/2025 Travel Social History Tobacco Use Types Packs/Day Years [...] documented as of this encounter Care Teams Forester Silviculture Relationship Specialty Start Date End Date Kailyn Gill MD 230 [place] [address] PCP - General Family Medicine 03/03/22 documented as of this encounter
--- OUTSIDE RECORDS SUMMARY | 2025-07-02 15:13 | XMS_ITS | Encounter Summary ---
Author Organization [employer] Address [address] [facility] 7t [place] [address] Care Team Providers Care Customer Expert Name Role Phone Kailyn Gill MD Primary Care Provider [phone] Reason for Visit * Reason Onset Date Comments chart prep 07/01/2025 Encounter Details Date Type Department Care Team ([facility] st Contact Info) Description 07/01/2025 Telephone [facility] MEDICINE 230 [place], [place] [phone] Kailyn Gill MD [address] [place], [place] [phone] chart prep Social History Tobacco Use Types Packs/Day Years [...] AM EDT documented as of this encounter Miscellaneous Notes * Telephone Encounter - Cheryl Jimenes [place] - 07/01/2025 9:39 AM EST ..Chart Prep Labs: not done Images: no notes for Holter Vaccines due: Covid Due Referrals: Not Applicable Screenings: PAP Overdue care gaps: Sbirt, SDOH, Disability , and Oral Health documented in this encounter Plan of Treatment Not on file documented as of this encounter Visit Diagnoses Not on filedocumented in this encounter Additional Health Concerns Assessment Noted Time PHQ-9 Depression Total Score: 20 025 3:52 PM EST documented as of this encounter Care Teams Customer Expert Relationship Specialty Start Date End Date Kailyn Gill MD 230 [place] [address] PCP - General Family Medicine 03/03/22 documented as of this encounter
--- OUTSIDE RECORDS SUMMARY | 2025-07-02 15:13 | XMS_ITS | Encounter Summary ---
Author Organization [employer] Address [address] [facility] [address] 7t [place] [address] Care Team Providers Care Cloth Bin Packer Name Role Phone Kailyn Gill MD Primary Care Provider [phone] Encounter Details Date Type Department Care Team ([facility] st Contact Info) Description 07/02/2025 Telephone [facility] MEDICINE 230 [place], [place] [phone] Kailyn Gill MD 230 [place], [place] [phone] Social History Tobacco Use Types Packs/Day Years [...] documented as of this encounter Care Teams Cloth Bin Packer Relationship Specialty Start Date End Date Kailyn Gill MD [address] [place] [address] PCP - General Family Medicine 03/03/22 documented as of this encounter
--- OUTSIDE RECORDS SUMMARY | 2025-07-02 15:13 | XMS_ITS | Encounter Summary ---
Author Organization [employer] Address [address] [facility] 7t [place] [address] Care Team Providers Care Clinical Lab Scientist Name Role Phone Kailyn Gill MD Primary Care Provider [phone] Encounter Details Date Type Department Care Team ([facility] st Contact Info) Description 10/07/2022 Orders Only [facility] MEDICINE 230 [place], [place] [phone] Kailyn Gill MD 230 [place], [place] [phone] Social History Tobacco Use Types Packs/Day Years [...] documented as of this encounter Care Teams Clinical Lab Scientist Relationship Specialty Start Date End Date Kailyn Gill MD 230 [place] [address] PCP - General Family Medicine 03/03/22 documented as of this encounter
--- OUTSIDE RECORDS SUMMARY | 2025-07-02 15:13 | XMS_ITS | Encounter Summary ---
Author Organization [employer] Address [address] [facility] 7t [place] [address] Care Team Providers Care Local Company Hazmat Driver Name Role Phone Kailyn Gill MD Primary Care Provider [phone] Reason for Visit * Reason Comments Care Coordination CHW outreach for SDO H housing search-referral completed Encounter Details Date Type Department Care Team (Latest Contact Info) Description 07/02/2025 Patient Outreach [facility] MEDICINE 230 [place] [address] Kailyn Gill MD 230 [place] [address] Care Coordination (CHW outreach for SDOH housing search-referral completed ) Social History Tobacco Use Types Packs/Day Years [...] AM EDT documented as of this encounter Progress Notes * Daniel Escalante - 07/02/2025 12:01 PM EST CHW Daniel Escalante, placed outbound call to patient for assistance with SDOH as a referral was received by the provider. Patient's name and were confirmed. Patient screened positive for the following SDOH housing insecurities. Patient states is staying with her friend but is searching for her own apartment. CHW referral patient to the list of application mail out to her address on file. Patient verbalizes understanding, and able to agree with plan to follow up herself. Patient educated on extended clinic hours on Mondays through Wednesdays, and Walk-In Urgent Care Located in [facility]. Patient provided with after-hours line for [facility], , which offer night time triage service and option to transfer to construction representative provider if needed. documented in this encounter Plan of Treatment Not on file documented as of this encounter Visit Diagnoses Not on filedocumented in this encounter Additional Health Concerns Assessment Noted Time PHQ-9 Depression Total Score: 20 025 3:52 PM EST documented as of this encounter Care Teams Local Company Hazmat Driver Relationship Specialty Start Date End Date Kailyn Gill MD [address] [place] [address] PCP - General Family Medicine 03/03/22 documented as of this encounter
== END 2025-07-02 15:11 | disposition home or self-care (01) ==
LOC: HO.LNP 15:10
PROVIDERS: Visit Provider Family Medicine
DX: N39.0 Urinary tract infection, site not specified (principal)
CPT/HCPCS: 87086; 87088; 87186

== ENCOUNTER 2025-07-09 13:46 | Outpatient (REF) | payer OTHER, SELFPAY ==
--- OUTSIDE RECORDS SUMMARY | 2025-07-09 15:05 | XMS_ITS | Encounter Summary ---
Author Organization [employer] Address [address] [facility] 7t [place] [address] Care Team Providers Care Shearer Printed Circuit Boards Name Role Phone Kailyn Gill MD Primary Care Provider Encounter Details Date Type Department Care Team ([facility] st Contact Info) Description 12/29/2022 Orders Only [facility] MEDICINE 230 [place], [place] [phone] Kailyn Gill MD 230 [place], [place] [phone] Social History Tobacco Use Types Packs/Day Years [...] documented as of this encounter Care Teams Shearer [employer]ed Circuit Boards Relationship Specialty Start Date End Date Kailyn Gill MD 230 [place] [address] PCP - General Family Medicine 03/03/22 documented as of this encounter
--- OUTSIDE RECORDS SUMMARY | 2025-07-09 15:05 | XMS_ITS | Encounter Summary ---
Author Organization [employer] Address [address] [facility] 7t [place] [address] Care Team Providers Care Wood Carving Machine Operator Name Role Phone Kailyn Gill MD Primary Care Provider [phone] Encounter Details Date Type Department Care Team ([facility] st Contact Info) Description 01/03/2025 Orders Only [facility] MEDICINE 230 [place], [place] [phone] Kenyatta Colón MD 230 [place] [address] Social History Tobacco Use Types Packs/Day Years [...] documented as of this encounter Care Teams Wood Carving Machine Operator Relationship Specialty Start Date End Date Kailyn Gill MD 230 [place] [address] PCP - General Family Medicine 03/03/22 documented as of this encounter
--- OUTSIDE RECORDS SUMMARY | 2025-07-09 15:05 | XMS_ITS | Encounter Summary ---
Author Organization [employer] Address [address] [facility] 7t [place] [address] Care Team Providers Care Curve Saw Operator Name Role Phone Kailyn Gill MD Primary Care Provider [phone] Encounter Details Date Type Department Care Team ([facility] st Contact Info) Description 05/16/2024 Orders Only [facility] MEDICINE 230 [place], [place] [phone] Kailyn Gill MD 230 [place], [place] [phone] Anxiety Social History Tobacco Use Types Packs/Day [...] with others, in a hotel, in a fpc, living outside on the street, on a [...] documented as of this encounter Care Teams Curve Saw Operator Relationship Specialty Start Date End Date Kailyn Gill MD 230 [place] [address] PCP - General Family Medicine 03/03/22 documented as of this encounter
--- OUTSIDE RECORDS SUMMARY | 2025-07-09 15:05 | XMS_ITS | Encounter Summary ---
Author Organization [employer] Address [address] [facility] [address] 7t [place] [address] Care Team Providers Care Administrator Pesticide Name Role Phone Kailyn Gill MD Primary Care Provider [phone] Encounter Details Date Type Department Care Team ([facility] st Contact Info) Description 05/03/2023 Orders Only [facility]S [address] [place], [place] [phone] Rhiannon Hinson MD [address] [place] [address] Social History Tobacco Use Types Packs/Day Years Used Date Smoking Tobacco: Never Passive Smoke Exposure: Never Smokeless Tobacco: Never Depression Answer Date Recorded Patient Health Questionnaire-9 Score 8 07/18/2022 Housing Stability Answer Date Recorded What is your housing situation today? I do not have housing (Staying with others, in a hotel, in a chcf, living outside on the street, on a [...] documented as of this encounter Care Teams Administrator Pesticide Relationship Specialty Start Date End Date Kailyn Gill MD [address] [place] [address] PCP - General Family Medicine 03/03/22 documented as of this encounter
--- OUTSIDE RECORDS SUMMARY | 2025-07-09 15:05 | XMS_ITS | Encounter Summary ---
Author Organization [employer] Address [address] [facility] 7t [place] [address] Care Team Providers Care Processing Manager Name Role Phone Kailyn Gill MD Primary Care Provider [phone] Encounter Details Date Type Department Care Team ([facility] st Contact Info) Description 01/03/2025 Orders Only [facility] MEDICINE 230 [place], [place] [phone] Briana Main NP 230 [place], [place] [phone] Social History Tobacco Use Types Packs/Day Years [...] with others, in a hotel, in a mcc, living outside on the street, on a [...] documented as of this encounter Care Teams Processing Manager Relationship Specialty Start Date End Date Kailyn Gill MD [address] [place] [address] PCP - General Family Medicine 03/03/22 documented as of this encounter
--- OUTSIDE RECORDS SUMMARY | 2025-07-09 15:05 | XMS_ITS | Encounter Summary ---
Author Organization [employer] Address [address] [facility] 7t [place] [address] Care Team Providers Care Tool Operator Name Role Phone Kailyn Gill MD Primary Care Provider [phone] Encounter Details Date Type Department Care Team ([facility] st Contact Info) Description 09/05/[address] [facility] MEDICINE 230 [place], [place] [phone] Kailyn Gill MD 230 [place], [place] [phone] Anxiety Social History Tobacco Use Types Packs/Day [...] documented as of this encounter Care Teams Tool Operator Relationship Specialty Start Date End Date Kailyn Gill MD [address] [place] [address] PCP - General Family Medicine 03/03/22 documented as of this encounter
--- OUTSIDE RECORDS SUMMARY | 2025-07-09 15:05 | XMS_ITS | Encounter Summary ---
Author Organization [employer] Address [address] [facility] 7t [place] [address] Care Team Providers Care Hammer Heater Name Role Phone Kailyn Gill MD Primary Care Provider [phone] Encounter Details Date Type Department Care Team ([facility] st Contact Info) Description 10/07/2022 Orders Only [facility] MEDICINE 230 [place], [place] [phone] Kailyn Gill MD 230 [place], [place] [phone] Social History Tobacco Use Types Packs/Day Years [...] documented as of this encounter Care Teams Hammer Heater Relationship Specialty Start Date End Date Kailyn Gill MD 230 [place] [address] PCP - General Family Medicine 03/03/22 documented as of this encounter
--- OUTSIDE RECORDS SUMMARY | 2025-07-09 15:05 | XMS_ITS | Clinical Summary ---
Author Organization [employer] Address [address] [facility] 7t [place] [address] Care Team Providers Care Director Of Education Name Role Phone Ya Gill MD Primary Care Provider [phone] Allergies No known active allergies Medications * [...] / foot swelling 40 tablet 5 Active nitrofurantoin, macrocrystal-mo nohydrate, (Macrobid) 100 MG capsule Take 1 capsule (100 mg) by mouth 2 times daily for 5 days. 10 capsule 5 07/09/20 25 Active Active Problems Problem Noted Date Diagnosed Date Right foot pain 07/06/2025 Assessment & Plan (07/06/2025 7:01 AM EST): - recent fall, 06/30/2025 - she is bearing weight, likely sprain - continue ice, judicious use of NSAIDs, and leg elevation - start home exercising / therapy as tolerated once pain is more tolerable - wear comfortable shoes Depression 06/11/2025 Assessment & Plan (07/06/2025 7:05 AM EST): - PHQ9 socre 20 on 06/11/2025 - waiting for long-term therapist assignment and psychiatrist - stressful work-environment - discussed about FMLA and possibly changing her job - patient was hesitant to pharmacotherapy, but agreed to try escitalpram once again. She has 5 mg at home. Advised to take TWO 5 mg tablets, and keep taking 10 mg as 5 mg is usually low dose. Panic attack 05/16/2024 Assessment & Plan (07/06/2025 7:06 AM EST): - Continue taking hydroxyzine prn Assessment & Plan (05/16/2024 12:26 PM EST): [...] She will fu with PCP in 6-8w Hirsutism 07/22/2022 Assessment & Plan (07/22/2022 11:03 AM EST): - pt is concerned about hair on her face, but not overtly abnormal - ?PCOS - check lab KAREN (generalized anxiety disorder) 10/22/2021 Assessment & Plan (07/06/2025 7:07 AM EST): GAD7 score 15 on 07/02/2025 Continue hydroxyzine 50 mg at bedtime prn Restart taking escitalopram Assessment & Plan (06/12/2025 8:16 AM EST): >>ASSESSMENT AND PLAN FOR ANXIETY WRITTEN ON 07/22/2022 11:07 AM BY YA GILL MD - continue hydroxyzine prn - she is not interested in referral to [facility] at this time Assessment & Plan (06/12/2025 8:16 AM EST): >>ASSESSMENT AND PLAN FOR ANXIETY WRITTEN ON 05/16/2024 12:27 PM BY COMPA GUZMAN MD Start on Lexapro and fu with PCP in 6w Continue vistaril 50mg at bedtime prn insomnia + tid prn anxiety. Fu with [facility] next week. Recurrent urinary tract infection 07/23/2021 Assessment & Plan (07/06/2025 7:11 AM EST): - asymptomatic at this time - postcoital UTI - UTI in Jul 2021 E. Coli resistant to penicillin, beta-lactam, cephalosporin, quinolone, and SMX/TMP, treated with nitrofurantoin - UTI in May 2021 E coli resistant to amp/beta-lactam, cephalosporin, quinolone - UTI in September 2020 E. Coli, treated with nitrofurantoin - UTI in Aug 2023 E. Coli resistant to amp, levofloxacin, and TMP/SMX - UTI in Jun 2025 pansensitive E.coli. Will treat with nitrofurantoin. She had 2 other UTIs, which were evaluated at Urgent Care clinic. - UTI frequency at least 3 times per year - Refer to urologist Assessment & Plan (12/22/2022 12:19 PM EDT): [...] Problem Noted Date Diagnosed Date Resolved Date Other chest pain 05/14/2023 07/06/2025 Assessment & Plan (05/14/2023 11:16 AM EST): [...] for 48 h -warm compesses -alarm signs Dietary counseling 12/22/2022 Vaginosis 06/21/2022 07/22/2022 Assessment [...] organization. 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 features, unspecified whether recurrent (CMS/HCC) ([facility]); Right foot pain; Hematuria, unspecified type 07/02/2025 Orders Only [facility] [place] [address] Ya Gill MD 07/02/2025 Patient Outreach [facility] [place] [address] Ya Gill MD Care Coordination (CHW outreach for SDOH housing search-referral completed ) 07/02/2025 Telephone [facility] [place] [address] Ya Gill MD 07/02/2025 Travel 07/01/2025 Telephone [facility] [place] [address] Ya Gill MD chart prep 06/11/2025 Travel 06/02/2025 3:15 PM EST Office Visit [facility] [place] [address] Karol Reyna ANP Anxiety (Primary Dx); Irregular menses; Palpitations 06/02/[address] [address] Ya Gill MD Insurance 06/02/2025 Travel 05/30/2025 Telephone [facility] [place] [address] Ya Gill MD Nurse Triage from Last [...] Routine 07/02/2025 11:18 AM EST UTI symptoms CULTURE, URINE, ROUTINE Routine 07/02/2025 11:13 AM EST from Last 3 Months Results * (ABNORMAL) POCT urinalysis dipstick manually resulted (CPT 48331) (07/02/2025 11:18 AM EST) Color, UA Yellow [...] Media Lot # [id number] Lot# Expiration Date [id number] Urine (Urine, Random) 07/02/2025 11:18 AM EST Ya Gill MD POINT OF CARE TEST ENTER/EDIT OR DERABLES Final Result * Culture, Urine, Routine (07/02/2025 11:13 AM EST) Urine Urine specimen obtained by clean catch procedure / Unknown 07/02/2025 11:13 AM EST 07/02/2025 3:11 PM EST Comment:UACC Narrative [facility] - 07/04/2025 8:10 AM EST Escherichia coli Quant > 100,000 cfu/mL Escherichia coli: Ampicillin <=2(S) Escherichia coli: Cefazolin (Urine) <=1(S) Escherichia coli: Cefepime <=0.12(S) Escherichia coli: Ceftriaxone <=0.25(S) Escherichia coli: Ciprofloxacin <=0.06(S) Escherichia coli: Gentamicin <=1(S) Escherichia coli: Nitrofurantoin 32(S) Escherichia coli: Trimethoprim/Sulfamethoxazole <=20(S) Specimen Source: Urine clean catch Ya Gill MD LAB MICROBIOLOGY - GENERAL ORDER CATA Final Result Performing Organization Address City/State/[facility] Co de Phone Number [facility] [address] [place] [address] [phone] from Last 3 Months Insurance GENERIC COMMERCIAL * Guarantor: Petra Noel Account Type Relation to Patient Date of Phone Billing Address Personal/Family Self [address] [place] [address] Care Teams Director Of Education Relationship Specialty Start Date End Date Ya Gill MD [address] [place] [address] PCP - General Family Medicine 03/03/22
--- OUTSIDE RECORDS SUMMARY | 2025-07-09 15:05 | XMS_ITS | Encounter Summary ---
Author Organization [employer] Address [address] [facility] 7t [place] [address] Care Team Providers Care Baggage Handler Name Role Phone Kailyn Gill MD Primary Care Provider [phone] Encounter Details Date Type Department Care Team ([facility] st Contact Info) Description 01/03/2025 Orders Only [facility] MEDICINE 230 [place], [place] [phone] Briana Main NP 230 [place], [place] [phone] Social History Tobacco Use Types Packs/Day Years [...] documented as of this encounter Care Teams Baggage Handler Relationship Specialty Start Date End Date Kailyn Gill MD [address] [place] [address] PCP - General Family Medicine 03/03/22 documented as of this encounter
--- OUTSIDE RECORDS SUMMARY | 2025-07-09 15:05 | XMS_ITS | Encounter Summary ---
Author Organization [employer] Address [address] [facility] [address] 7t [place] [address] Care Team Providers Care Windsmith Name Role Phone Kailyn Gill MD Primary Care Provider [phone] Encounter Details Date Type Department Care Team ([facility] st Contact Info) Description 07/04/2025 Orders Only [facility] MEDICINE 230 [place], [place] [phone] Kailyn Gill MD 230 [place], [place] [phone] Social History Tobacco Use Types Packs/Day Years [...] as of this encounter Progress Notes * Kailyn Gill MD - 07/04/2025 2:32 PM EST Urine culture grew pansensitive E.coli. Will treat with nitrofurantoin. Patient was notified. Patient requests it to be sent to [employer]. documented in this encounter Plan of Treatment Not on file documented as of this encounter Visit Diagnoses Not on filedocumented in this encounter Additional Health Concerns Assessment Noted Time PHQ-9 Depression Total Score: 20 025 3:52 PM EST documented as of this encounter Care Teams Windsmith Relationship Specialty Start Date End Date Kailyn Gill MD [address] [place] [address] PCP - General Family Medicine 03/03/22 documented as of this encounter
[2025-07-09 16:22] LABS: MANUAL DIFF FLAG NO
[2025-07-09 16:36] LABS: Hematocrit 38.6 % (37.0-47.0); Hemoglobin 12.5 g/dl (12.0-16.0); Imm Gran Abs Auto 0.01 X10*3/uL (0.00-0.03); Imm Gran Pct Auto 0.2 % (0.0-0.4); Lymphocytes Absolute Auto 2.5 X10*3/uL (1.2-4.9); Mean Corpuscular HGB Conc 32.4 g/dl (31.0-35.0); Mean Corpuscular Hemoglobin 30.3 pg (27.0-33.0); Mean Corpuscular Volume 93.5 fL (80.0-98.0); NRBC Abs Auto 0.000 X10*3/uL (0.0-0.012); NRBC Pct Auto 0.0 /100WBC (0.0-0.2); Platelet Count 307 X10*3/uL (160-400); Red Blood Count 4.13 X10*6/uL (4.20-5.50); White Blood Count 5.6 X10*3/uL (4.8-10.8)
[2025-07-09 17:39] LABS: Alanine Aminotransferase 8 U/L (0-31); Albumin Level 4.2 g/dL (3.5-5.0); Alkaline Phosphatase 70 U/L (39-117); Anion Gap 10 (12-20); Aspartate Amino Transferase 25 U/L (5-31); Blood Urea Nitrogen 4 mg/dL (9-16); Calcium 9.2 mg/dL (8.4-10.2); Carbon Dioxide 24 mmol/L (22-29); Chloride 110 mmol/L (96-108); Estimated Glomerular Filt Rate > 60; Potassium 3.8 mmol/L (3.3-5.1); Sodium 140 mmol/L (135-145); Total Protein 7.1 g/dL (6.5-8.0)
== END 2025-07-09 13:47 | disposition home or self-care (01) ==
LOC: HO.HHCL 13:46
PROVIDERS: PCP Family Medicine; Visit Provider Nurse Practitioner Primary Care
DX: Z13.1 Encounter for screening for diabetes mellitus (principal); N92.6 Irregular menstruation, unspecified; F41.9 Anxiety disorder, unspecified
CPT/HCPCS: 36415; 80053; 83036; 84443; 85025